=== PATIENT | female | born 2005 | race Caucasian/White ===

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

== ENCOUNTER 2023-06-20 20:36 | Emergency (ER) | payer BC ==
[2023-06-20] MEDS ORDERED: Diphtheria,Pertussis(Acell),Tetanus Vaccine 0.5 ML Syringe IM ONE (20:51)
[2023-06-20 21:24] VITALS: BP 112/68; PULSE 76
== END 2023-06-20 21:22 | disposition home or self-care (01) ==
LOC: MW.ED 20:36
DX: S41.111A Laceration without foreign body of right upper arm, initial encounter (principal); K21.9 Gastro-esophageal reflux disease without esophagitis; J45.909 Unspecified asthma, uncomplicated; Z91.048 Other nonmedicinal substance allergy status; Z91.09 Other allergy status, other than to drugs and biological substances; Z23 Encounter for immunization; W26.8XXA Contact with other sharp object(s), not elsewhere classified, initial encounter
CPT/HCPCS: 12001; 90471; 90715; 99282-25; 99283

== ENCOUNTER 2024-06-25 11:26 | Emergency (ER) | payer BC ==
[2024-06-25 14:57] VITALS: BP 126/75; PULSE 83
== END 2024-06-25 12:07 | disposition home or self-care (01) ==
LOC: MW.ED 11:26
DX: H92.03 Otalgia, bilateral (principal); R09.81 Nasal congestion; J45.909 Unspecified asthma, uncomplicated; Z91.048 Other nonmedicinal substance allergy status; Z75.8 Other problems related to medical facilities and other health care
CPT/HCPCS: 99283

== ENCOUNTER 2024-11-08 16:58 | Emergency (ER) | payer BC ==
[2024-11-08 17:51] VITALS: BP 114/65; PULSE 80
== END 2024-11-08 21:30 | disposition left against medical advice (07) ==
LOC: MW.ED 16:58
DX: Z53.21 Procedure and treatment not carried out due to patient leaving prior to being seen by health care provider (principal)
CPT/HCPCS: 73620-26-RT; 73620-RT

== ENCOUNTER 2024-11-09 11:40 | Emergency (ER) | payer BC ==
[2024-11-09 12:33] VITALS: BP 129/79; PULSE 86
== END 2024-11-09 14:22 | disposition home or self-care (01) ==
LOC: MW.ED 11:40
DX: S91.311A Laceration without foreign body, right foot, initial encounter (principal); Z91.048 Other nonmedicinal substance allergy status; Z79.899 Other long term (current) drug therapy; W25.XXXA Contact with sharp glass, initial encounter
CPT/HCPCS: 12002; 99282

== ENCOUNTER 2025-06-09 13:49 | Emergency (ER) | payer BC ==
[2025-06-09] MEDS ORDERED: Sodium Chloride 0.9% 2.5 ML Syringe FLUSH PRN (14:23)
[2025-06-09] MEDS ORDERED: Sodium Chloride 0.9% 10 ML Syringe FLUSH PRN (14:23)
[2025-06-09 14:54] LABS: BASOPHILS ABSOLUTE AUTO 0.03 K/uL (0.00-0.20); BASOPHILS PERCENT AUTO 0.3 % (0.0-1.0); EOSINOPHILS ABSOLUTE AUTO 0.06 K/uL (0.00-0.45); EOSINOPHILS PERCENT AUTO 0.5 % (0.0-6.0); IMMATURE GRAN ABSOLUTE AUTO 0.05 K/uL (0.00-0.05); IMMATURE GRAN PERCENT AUTO 0.4 % (0.0-0.4); LYMPHOCYTES ABSOLUTE AUTO 1.41 K/uL (1.00-4.80); LYMPHOCYTES PERCENT AUTO 12.4 % (24.0-44.0); MEAN PLATELET VOLUME 8.7 fL (9.4-12.3); MONOCYTES ABSOLUTE AUTO 0.60 K/uL (0.00-0.80); MONOCYTES PERCENT AUTO 5.3 % (0.0-8.0); NEUTROPHILS ABSOLUTE AUTO 9.19 K/uL (1.80-7.70); NEUTROPHILS PERCENT AUTO 81.1 % (41.0-71.0); NRBC ABSOLUTE 0.00 K/uL (0.00-0.02); NRBC PERCENT 0.0 /100WBC (0.0-0.2); PLATELET COUNT,PLT 295 K/uL (150-400); RED BLOOD CELL COUNT 4.28 M/uL (4.10-5.30); WHITE BLOOD CELL COUNT,WBC 11.34 K/uL (3.9-11.3)
[2025-06-09 15:13] LABS: A/G RATIO 0.9 (0.9-1.6); ALANINE AMINOTRANSFERASE,ALT 23 IU/L (14-63); ASPARTATE AMNIOTRANSFERASE,AST 15 IU/L (15-37); BILIRUBIN TOTAL 0.4 mg/dL (0.2-1.0); BLOOD UREA NITROGEN,BUN 5 mg/dL (7.0-18.0); CARBON DIOXIDE,CO2 19.1 mmol/L (21.0-32.0); CHLORIDE,CL 106 mmol/L (98-107); CREATININE 0.5 mg/dL (0.6-1.0); EST CRCL DRUG DOSING (CG) 160.15 mL/min; GLUCOSE RANDOM 82 mg/dL (74-106); POTASSIUM,K 3.3 mmol/L (3.5-5.1); PROTEIN TOTAL,TP 6.2 g/dL (6.4-8.2); SODIUM,NA 138 mmol/L (136-145)
[2025-06-09 15:21] LABS: ESTIMATED GFR 137 mL/min (>60)
[2025-06-09 16:18] LABS: APPEARANCE,URINE SLT CLOUDY; GLUCOSE,URINE NEGATIVE (NEGATIVE); OCCULT BLOOD,URINE NEGATIVE (NEGATIVE)
[2025-06-09 16:27] LABS: EPITHELIAL CELLS,URINE MODERATE (NONE-FEW)
[2025-06-09 16:57] VITALS: BP 118/67; PULSE 87
== END 2025-06-09 16:55 | disposition home or self-care (01) ==
LOC: MW.ED 13:49
DX: O26.892 Other specified pregnancy related conditions, second trimester (principal); R10.9 Unspecified abdominal pain; O23.42 Unspecified infection of urinary tract in pregnancy, second trimester; N39.0 Urinary tract infection, site not specified; J45.909 Unspecified asthma, uncomplicated; Z91.048 Other nonmedicinal substance allergy status; Z79.51 Long term (current) use of inhaled steroids; Z79.899 Other long term (current) drug therapy; Z3A.27 27 weeks gestation of pregnancy
CPT/HCPCS: 36415; 76815; 80053; 81001; 83690; 84484; 85025; 93005; 99285; A9270; 93010; 99284

== ENCOUNTER 2025-06-15 20:14 | Emergency (ER) | payer BC ==
[2025-06-15] MEDS: Budesonide 0.5 MG/2 ML Neb Susp NEB ONE (20:43)
[2025-06-15 20:51] LABS: BASOPHILS ABSOLUTE AUTO 0.04 K/uL (0.00-0.20); BASOPHILS PERCENT AUTO 0.3 % (0.0-1.0); EOSINOPHILS ABSOLUTE AUTO 0.53 K/uL (0.00-0.45); EOSINOPHILS PERCENT AUTO 3.6 % (0.0-6.0); IMMATURE GRAN ABSOLUTE AUTO 0.05 K/uL (0.00-0.05); IMMATURE GRAN PERCENT AUTO 0.3 % (0.0-0.4); LYMPHOCYTES ABSOLUTE AUTO 2.07 K/uL (1.00-4.80); LYMPHOCYTES PERCENT AUTO 14.0 % (24.0-44.0); MEAN PLATELET VOLUME 8.9 fL (9.4-12.3); MONOCYTES ABSOLUTE AUTO 1.19 K/uL (0.00-0.80); MONOCYTES PERCENT AUTO 8.1 % (0.0-8.0); NEUTROPHILS ABSOLUTE AUTO 10.87 K/uL (1.80-7.70); NEUTROPHILS PERCENT AUTO 73.7 % (41.0-71.0); NRBC ABSOLUTE 0.00 K/uL (0.00-0.02); NRBC PERCENT 0.0 /100WBC (0.0-0.2); PLATELET COUNT,PLT 294 K/uL (150-400); RED BLOOD CELL COUNT 4.42 M/uL (4.10-5.30); WHITE BLOOD CELL COUNT,WBC 14.75 K/uL (3.9-11.3)
[2025-06-15 21:23] LABS: A/G RATIO 0.9 (0.9-1.6); ALANINE AMINOTRANSFERASE,ALT 15 IU/L (14-63); ASPARTATE AMNIOTRANSFERASE,AST 15 IU/L (15-37); BILIRUBIN TOTAL 0.4 mg/dL (0.2-1.0); BLOOD UREA NITROGEN,BUN 6 mg/dL (7.0-18.0); CARBON DIOXIDE,CO2 21.0 mmol/L (21.0-32.0); CHLORIDE,CL 103 mmol/L (98-107); CREATININE 0.6 mg/dL (0.6-1.0); EST CRCL DRUG DOSING (CG) 133.46 mL/min; GLUCOSE RANDOM 70 mg/dL (74-106); POTASSIUM,K 3.5 mmol/L (3.5-5.1); PRO B-TYPE NATRIUR PEPT,BNPPRO 32 pg/mL (0-125); PROTEIN TOTAL,TP 6.7 g/dL (6.4-8.2); SODIUM,NA 138 mmol/L (136-145)
[2025-06-15 21:24] LABS: ESTIMATED GFR 131 mL/min (>60)
[2025-06-15 21:43] VITALS: BP 108/63; PULSE 94
[2025-06-15] MEDS: Magnesium Sulfate 2 GM/50 mL 2 GM in Premix Bag 1 BAG IV ONE (21:58)
[2025-06-15] MEDS: Bacitracin Oint 1 GM U/D Packet TOP ONE (22:01)
== END 2025-06-15 22:34 | disposition home or self-care (01) ==
LOC: MW.ED 20:14
DX: O99.511 Diseases of the respiratory system complicating pregnancy, first trimester (principal); Z88.8 Allergy status to other drugs, medicaments and biological substances; Z79.899 Other long term (current) drug therapy; R07.89 Other chest pain; J45.21 Mild intermittent asthma with (acute) exacerbation
CPT/HCPCS: 36415; 80053; 83735; 83880; 84484; 85025; 85379; 87426; 93005; 96361; 96365; 99285; J3475; J7030; J8540; Q0144; 93010; 99284; A9270-GY

== ENCOUNTER 2025-08-18 06:39 | Inpatient (IN) | payer BC, MEDICAID ==
[2025-08-18] MEDS ORDERED: Nalbuphine 10 MG/1 ML Vial IVPUSH PRN (14:26)
[2025-08-18] MEDS ORDERED: Sodium Chloride 0.9% 10 ML Syringe FLUSH PRN (14:26)
[2025-08-18] MEDS ORDERED: Sodium Chloride 0.9% 2.5 ML Syringe FLUSH PRN (14:26)
[2025-08-18] MEDS ORDERED: Carboprost Tromethamine 250 MCG/1 mL Vial IM PRN (14:26)
[2025-08-18] MEDS ORDERED: Ondansetron 4 MG/2 ML SDV IVPUSH PRN (14:26)
[2025-08-18] MEDS ORDERED: Water For Irrigation,Sterile 1,000 ML Container IRR PRN (14:26)
[2025-08-18] MEDS ORDERED: Terbutaline 1 MG/ML SDV SUBCUT PRN (14:26)
[2025-08-18] MEDS ORDERED: Oxytocin/0.9 % Sodium Chloride 30 UNIT/500 ML BAG IV SCH (14:30)
[2025-08-18 14:43] LABS: MEAN PLATELET VOLUME 9.2 fL (9.4-12.3); NRBC ABSOLUTE 0.00 K/uL (0.00-0.02); NRBC PERCENT 0.0 /100WBC (0.0-0.2); PLATELET COUNT,PLT 288 K/uL (150-400); RED BLOOD CELL COUNT 4.43 M/uL (4.10-5.30); WHITE BLOOD CELL COUNT,WBC 9.34 K/uL (3.9-11.3)
[2025-08-18] MEDS: Lactated Ringers 1,000 ML IV SCH (15:08)
[2025-08-18] MEDS ORDERED: ePHEDrine 50 MG/ML SDV IVPUSH PRN (21:30)
[2025-08-18] MEDS ORDERED: dexmedeTOMIDine HCl 200 MCG/2 ML SDV EPIDUR SCH (21:30)
[2025-08-18] MEDS: Citric Acid/Sodium Citrate Solution 30 ML Cup PO ONE (21:52)
[2025-08-19 17:14] LABS: MEAN PLATELET VOLUME 9.3 fL (9.4-12.3); NRBC ABSOLUTE 0.00 K/uL (0.00-0.02); NRBC PERCENT 0.0 /100WBC (0.0-0.2); PLATELET COUNT,PLT 279 K/uL (150-400); RED BLOOD CELL COUNT 4.65 M/uL (4.10-5.30); WHITE BLOOD CELL COUNT,WBC 13.85 K/uL (3.9-11.3)
[2025-08-19] MEDS: Ropivacaine HCl/PF 400 MG in Premix Bag 1 BAG EPIDUR SCH (23:54)
[2025-08-20] MEDS: Oxytocin/0.9 % Sodium Chloride 30 UNIT/500 ML BAG IV SCH (00:09)
[2025-08-20] MEDS ORDERED: Aluminum Hydroxide/Magnesium Hydroxide/Simethicone Susp 30 ML Cup PO PRN (07:31)
[2025-08-20 07:39] LABS: PH,UMBILICAL ARTERIAL 7.3 (7.18-7.38); PH,UMBILICAL VENOUS 7.27 (7.25-7.45)
[2025-08-20] MEDS: Witch Hazel Medicated Pads 40/Jar TOP PRN (09:25)
[2025-08-20] MEDS: Lanolin 100% Cream 7 GM Tube TOP PRN (09:26)
[2025-08-20] MEDS: Benzocaine/Menthol 20%-0.5% Spray 78 GM Cannister TOP PRN (09:26)
[2025-08-20] MEDS: Measles, Mumps & Rubella Vaccine 0.5 ML SDV SUBCUT ONE (09:29)
[2025-08-21 05:43] LABS: BASOPHILS ABSOLUTE AUTO 0.05 K/uL (0.00-0.20); BASOPHILS PERCENT AUTO 0.4 % (0.0-1.0); EOSINOPHILS ABSOLUTE AUTO 0.34 K/uL (0.00-0.45); EOSINOPHILS PERCENT AUTO 2.7 % (0.0-6.0); IMMATURE GRAN ABSOLUTE AUTO 0.05 K/uL (0.00-0.05); IMMATURE GRAN PERCENT AUTO 0.4 % (0.0-0.4); LYMPHOCYTES ABSOLUTE AUTO 1.97 K/uL (1.00-4.80); LYMPHOCYTES PERCENT AUTO 15.8 % (24.0-44.0); MEAN PLATELET VOLUME 9.3 fL (9.4-12.3); MONOCYTES ABSOLUTE AUTO 0.93 K/uL (0.00-0.80); MONOCYTES PERCENT AUTO 7.4 % (0.0-8.0); NEUTROPHILS ABSOLUTE AUTO 9.15 K/uL (1.80-7.70); NEUTROPHILS PERCENT AUTO 73.3 % (41.0-71.0); NRBC ABSOLUTE 0.00 K/uL (0.00-0.02); NRBC PERCENT 0.0 /100WBC (0.0-0.2); PLATELET COUNT,PLT 250 K/uL (150-400); RED BLOOD CELL COUNT 4.26 M/uL (4.10-5.30); WHITE BLOOD CELL COUNT,WBC 12.49 K/uL (3.9-11.3)
[2025-08-22 12:39] VITALS: BP 115/74; PULSE 89
== END 2025-08-22 13:43 | disposition home or self-care (01) | DRG 560 ==
LOC: MW.OB 06:39 → OBSVTOIN 08-20 06:39 → MW.OB 08-20 08:27
PROVIDERS: ADMIT Obstetrics & Gynecology; ATTEND Obstetrics & Gynecology
PROC: 10E0XZZ Delivery of Products of Conception, External Approach (ICD-10-PCS; principal; 2025-08-20)
PROC: 3E033XZ Introduction of Vasopressor into Peripheral Vein, Percutaneous Approach (ICD-10-PCS; 2025-08-20)
PROC: 0HQ9XZZ Repair Perineum Skin, External Approach (ICD-10-PCS; 2025-08-20)
PROC: 3E03329 Introduction of Other Anti-infective into Peripheral Vein, Percutaneous Approach (ICD-10-PCS; 2025-08-20)
PROC: 3E0S3BZ Introduction of Anesthetic Agent into Epidural Space, Percutaneous Approach (ICD-10-PCS; 2025-08-20)
PROC: 10907ZC Drainage of Amniotic Fluid, Therapeutic from Products of Conception, Via Natural or Artificial Opening (ICD-10-PCS; 2025-08-20)
PROC: 3E0DXGC Introduction of Other Therapeutic Substance into Mouth and Pharynx, External Approach (ICD-10-PCS; 2025-08-20)
PROC: 3E033VJ Introduction of Other Hormone into Peripheral Vein, Percutaneous Approach (ICD-10-PCS; 2025-08-20)
PROC: 4A0HXCZ Measurement of Products of Conception, Cardiac Rate, External Approach (ICD-10-PCS; 2025-08-20)
DX: O36.5930 Maternal care for other known or suspected poor fetal growth, third trimester, not applicable or unspecified (principal); Z3A.38 38 weeks gestation of pregnancy; Z37.0 Single live birth; O99.824 Streptococcus B carrier state complicating childbirth; O99.344 Other mental disorders complicating childbirth; O99.52 Diseases of the respiratory system complicating childbirth; J45.909 Unspecified asthma, uncomplicated; F41.8 Other specified anxiety disorders; O69.81X0 Labor and delivery complicated by cord around neck, without compression, not applicable or unspecified; O70.0 First degree perineal laceration during delivery
CPT/HCPCS: 01967; 36415; 51702; 59025; 59409; 82803; 85025; 85027; 86592; 86850; 86900; 86901; A9270-GY; J0290; J2371; J2590; J2795; J7120